=== PATIENT | male | born 1990 ===

== ENCOUNTER 2021-09-19 20:39 | Emergency (ER) | payer SELFPAY ==
[~2021-09-19] VITALS: Ht 180.3 cm; Wt 76.5 kg
[2021-09-19 20:57] VITALS: BP 139/74
[2021-09-19] MEDS ORDERED: IBUP-1984 PO (21:57)
[2021-09-19] MEDS ORDERED: CEPH250T PO (21:57)
[2021-09-19] MEDS ORDERED: ibuprofen tablet 400 MG TABLET PO ONE (22:00)
== END 2021-09-19 22:13 | disposition home or self-care (01) ==
LOC: ER 20:39
DX: M79.671 Pain in right foot (principal); F15.90 Other stimulant use, unspecified, uncomplicated; Z56.0 Unemployment, unspecified; Z59.00 Homelessness unspecified
CPT/HCPCS: 99283